=== PATIENT | male | born 1985 | race Caucasian/White ===

== ENCOUNTER 2016-12-23 12:56 | Emergency (ER) | payer MEDICAID, OTHER ==
[~2016-12-23] VITALS: Ht 180.3 cm; Wt 75.9 kg
[2016-12-23] MEDS ORDERED: DEXAMETHASONE SOD PHOS 4 MG/ML VIAL IM ONE (14:30)
[2016-12-23] MEDS ORDERED: CefTRIAXone SODIUM 1 GM/VIAL IM ONE (14:30)
[2016-12-23] MEDS ORDERED: LIDOCAINE HCL/PF 1% 2 ML VIAL IM ONE (14:30)
[2016-12-23 14:59] VITALS: BP 128/82
== END 2016-12-23 15:01 | disposition home or self-care (01) ==
LOC: EMS 12:58
DX: L03.114 Cellulitis of left upper limb (principal); S50.862A Insect bite (nonvenomous) of left forearm, initial encounter; T78.40XA Allergy, unspecified, initial encounter; L29.9 Pruritus, unspecified; F17.210 Nicotine dependence, cigarettes, uncomplicated; X58.XXXA Exposure to other specified factors, initial encounter; W57.XXXA Bitten or stung by nonvenomous insect and other nonvenomous arthropods, initial encounter; Y93.89 Activity, other specified; Y92.89 Other specified places as the place of occurrence of the external cause; Y99.8 Other external cause status
CPT/HCPCS: 96372; 99284; J0696; J1100; J3490